=== PATIENT | female | born 1935 | race Caucasian/White ===

== ENCOUNTER → 2017-04-02 | Outpatient (CLI) | payer MEDICARE | END | disposition home or self-care (01) | LOC: CARD 13:51 | PROVIDERS: ATTEND Internal Medicine | DX: R05 Cough (principal) | CPT/HCPCS: 94060; 94620; 94726; 94729 ==

== ENCOUNTER 2017-06-11 06:58 | Inpatient (IN) | payer MEDICARE ==
[~2017-06-11] VITALS: Ht 152.4 cm; Wt 100.4 kg
[~2017-06-11 06:58] MED LIST: ASPI-496 PO; BACITRACIN 50,000 UNIT ONE; CALC-451 PO; CARB15DR EACHEYE; DEXAMETHASONE 4 MG/ML, 1ML ONE; EPINEPHRINE 1 MG/ML, 1ML ONE; FELO2.5T PO; FENTANYL PF 100 MCG/2ML ONE; HYDR-3237 PO; HYDR25TA6 PO; KETOROLAC 60 MG/2 ML ONE; LOSA50TA6 PO; MIDAZOLAM 1 MG/ML, 2ML ONE; OMEP40CA6 PO; ONDANSETRON 2MG/ML, 2ML ONE; POTA10TA5 PO; PROPOFOL 10 MG/ML, 20ML ONE; ROCURONIUM 10 MG/ML ONE; ROPIvacaine/PF 0.2%, 20 ML ONE; SIMV20TA3 PO; SUCCINYLCHOLINE 20 MG/ML, 10ML ONE; TRAM50TA2 PO; TRANEXAMIC ACID 100 MG/ML, 10ML ONE; VIT1TABL34 PO; [UNRECOGNIZED DRUG - SUPPLY] EACHEYE; morphine SULFATE/PF 1 MG/ML, 10ML ONE
[2017-06-11] MEDS ORDERED: CEFAZOLIN 1,000 MG ONE ×2 (07:00)
[2017-06-11] MEDS ORDERED: LACTATED RINGERS 1,000 ML IV SCH (07:20)
[2017-06-11] MEDS ORDERED: VANCOMYCIN PMX 1GM/200ML 200 ML IV ONE (07:30)
[2017-06-11 07:51] VITALS: BP 154/77
[2017-06-11] MEDS ORDERED: BUPIVACAINE/PF 0.25% ONE (08:28)
[2017-06-11] MEDS ORDERED: morphine SULFATE 10 MG/ML, 1ML IVPush PRN (10:00)
[2017-06-11] MEDS ORDERED: HYDROmorphone 1 MG/ML, 1ML IV PRN (10:00)
[2017-06-11] MEDS ORDERED: DIPHENHYDRAMINE 50 MG CAPSULE PO PRN (10:00)
[2017-06-11] MEDS ORDERED: hydrALAzine 20 MG/ML, 1ML IV PRN (10:00)
[2017-06-11] MEDS ORDERED: LABETALOL 5MG/ML, 20ML IV PRN (10:00)
[2017-06-11] MEDS ORDERED: OXYcodone 5 MG/5 ML ORAL.SOL UDC PO PRN (10:00)
[2017-06-11] MEDS ORDERED: OXYcodone/APAP 7.5/325MG TABLET PO PRN (10:00)
[2017-06-11] MEDS ORDERED: TRANEXAMIC ACID 100 MG/ML, 10ML IVPB ONE (10:00)
[2017-06-11] MEDS ORDERED: ONDANSETRON 2MG/ML, 2ML IVPush PRN ×2 (10:00)
[2017-06-11] MEDS ORDERED: ACETAMINOPHEN 325 MG TABLET PO PRN (10:00)
[2017-06-11] MEDS ORDERED: HYDROcodone/APAP 7.5-325MG/15ML UDC PO PRN (10:00)
[2017-06-11] MEDS ORDERED: ZOLPIDEM 5MG TABLET PO PRN (10:00)
[2017-06-11] MEDS ORDERED: LORazepam 2 MG/ML, 1ML IVPush PRN (10:00)
[2017-06-11] MEDS ORDERED: VANCOMYCIN PMX 1GM/200ML 200 ML IVPB ONE (10:00)
[2017-06-11] MEDS ORDERED: LABETALOL 5MG/ML, 20ML ONE (10:17)
[2017-06-11] MEDS ORDERED: HYDROmorphone 1 MG/ML, 1ML ONE (10:28)
[2017-06-11] MEDS ORDERED: FENTANYL PF 100 MCG/2ML ONE (11:53)
[2017-06-11] MEDS ORDERED: OXYcodone 5 MG/5 ML ORAL.SOL UDC ONE (11:54)
[2017-06-11] MEDS: FENTANYL PF 100 MCG/2ML IV PRN ×3 (11:59→12:25)
[2017-06-11 12:55] VITALS: BP 138/74
[2017-06-11] MEDS: D5%-0.45% NACL 1,000 ML IV SCH ×2 (13:40→14:36)
[2017-06-11] MEDS ORDERED: TRANEXAMIC ACID 1,000 MG in SODIUM CHLORIDE 0.9% 100 ML IV ONE (14:00)
[2017-06-11] MEDS: CEFAZOLIN PMX 1GM/50ML 50 ML IVPB SCH ×2 (14:35→22:20)
[2017-06-11] MEDS: HYDROcodone/APAP 5/325 TABLET PO PRN (18:24)
[2017-06-11 18:43] VITALS: BP 118/72
[2017-06-11] MEDS: ARTIFICIAL TEARS OPHTH SOLN 15ML OP SCH (21:00)
[2017-06-11] MEDS ORDERED: SIMVASTATIN 20 MG TABLET PO SCH (21:00)
[2017-06-11] MEDS: CALCIUM/VITAMIN D3 250-125 TABLET PO SCH (22:21)
[2017-06-11 23:44] VITALS: BP 97/60
[2017-06-12] MEDS: D5%-0.45% NACL 1,000 ML IV SCH ×2 (00:50→05:42)
[2017-06-12 03:07] VITALS: BP 110/52
[2017-06-12] MEDS: HYDROcodone/APAP 5/325 TABLET PO PRN ×2 (05:09→08:58)
[2017-06-12] MEDS: CEFAZOLIN PMX 1GM/50ML 50 ML IVPB SCH (05:54)
[2017-06-12] MEDS ORDERED: OMEPRAZOLE 20 MG CAPSULE.DR PO SCH (07:30)
[2017-06-12] MEDS ORDERED: ASPIRIN 325 MG TABLET EC PO SCH ×2 (08:00→17:00)
[2017-06-12 08:25] VITALS: BP 156/73
[2017-06-12] MEDS ORDERED: VANCOMYCIN PMX 1GM/200ML 200 ML IVPB ONE (08:30)
[2017-06-12] MEDS: CALCIUM/VITAMIN D3 250-125 TABLET PO SCH (08:36)
[2017-06-12] MEDS: ARTIFICIAL TEARS OPHTH SOLN 15ML OP SCH (08:37)
[2017-06-12] MEDS ORDERED: MULTIVITAMINS/MINERALS TABLET PO SCH (09:00)
[2017-06-12] MEDS ORDERED: AMLODIPINE 2.5 MG TABLET PO SCH (09:00)
[2017-06-12] MEDS ORDERED: LOSARTAN 50MG TABLET PO SCH (09:00)
[2017-06-12] MEDS ORDERED: POTASSIUM CHLORIDE 10 MEQ TABLET.ER PO SCH (09:00)
[2017-06-12] MEDS ORDERED: HYDROCHLOROTHIAZIDE 12.5 MG CAPSULE PO SCH (09:00)
[2017-06-12] MEDS ORDERED: HYDR-882 PO (12:54)
[2017-06-12 13:34] VITALS: BP 132/70
[2017-06-12 13:55] VITALS: BP 132/70
[2017-06-12] MEDS ORDERED: DOCUSATE 100 MG CAPSULE PO SCH (21:00)
== END 2017-06-12 14:20 | disposition home or self-care (01) | DRG 470 ==
LOC: ORIP 06:58 → 4NOR 12:54
PROVIDERS: ADMIT Orthopaedic Surgery; ATTEND Orthopaedic Surgery
PROC: 0SRD0J9 Replacement of Left Knee Joint with Synthetic Substitute, Cemented, Open Approach (ICD-10-PCS; principal; 2017-06-11 09:30)
DX: M17.12 Unilateral primary osteoarthritis, left knee (principal)
CPT/HCPCS: 36415; 82962; 85018; C1713; J0171; J0690; J1100; J1170; J1885; J2250; J2274; J2405; J2704; J2795; J3010; J3370; J3490; C1776; J0330; J2270; J7120

== ENCOUNTER → 2018-02-07 | Outpatient (CLI) | payer MEDICARE ==
[~2018-02-07] MED LIST changes: -BACITRACIN 50,000 UNIT ONE; -CARB15DR EACHEYE; +CARB15DR3 EACHEYE; -DEXAMETHASONE 4 MG/ML, 1ML ONE; -EPINEPHRINE 1 MG/ML, 1ML ONE; -FENTANYL PF 100 MCG/2ML ONE; +HYDR-882 PO; -KETOROLAC 60 MG/2 ML ONE; -MIDAZOLAM 1 MG/ML, 2ML ONE; -ONDANSETRON 2MG/ML, 2ML ONE; -PROPOFOL 10 MG/ML, 20ML ONE; -ROCURONIUM 10 MG/ML ONE; -ROPIvacaine/PF 0.2%, 20 ML ONE; -SUCCINYLCHOLINE 20 MG/ML, 10ML ONE; -TRANEXAMIC ACID 100 MG/ML, 10ML ONE; -morphine SULFATE/PF 1 MG/ML, 10ML ONE
== END | disposition home or self-care (01) ==
LOC: RAD 10:00
PROVIDERS: ATTEND Internal Medicine
DX: E04.1 Nontoxic single thyroid nodule (principal)
CPT/HCPCS: 71250

== ENCOUNTER 2020-09-04 10:06 | Emergency (ER) | payer MEDICARE ==
[~2020-09-04] VITALS: Ht 149.9 cm; Wt 91.9 kg
[~2020-09-04 10:06] MED LIST changes: +DOCU-131 PO; -FELO2.5T PO; +FELO2.5T4 PO; +HYDR-3653 PO; -HYDR-882 PO; +LOSA50TA14 PO; -LOSA50TA6 PO; +OMEP40CA42 PO; -OMEP40CA6 PO; +OXYC5CAP2 PO; +SIMV20TA19 PO; -SIMV20TA3 PO
[2020-09-04] MEDS ORDERED: SODIUM CHLORIDE FLUSH 10ML SYR IVF ONE (11:00)
[2020-09-04] MEDS ORDERED: ONDANSETRON 2MG/ML, 2ML IVPush ONE (11:00)
[2020-09-04] MEDS ORDERED: MORPHINE SULFATE 4 MG/ML, 1ML IVPush PRN (11:00)
[2020-09-04] MEDS ORDERED: ONDANSETRON 2MG/ML, 2ML ONE (11:12)
[2020-09-04] MEDS ORDERED: MORPHINE SULFATE 4 MG/ML, 1ML ONE (11:13)
[2020-09-04 11:15] LABS: BASOPHILS % (AUTO) 1 % (0-1); EOSINOPHILS % (AUTO) 2 % (1-7); LYMPHOCYTES % (AUTO) 19 % (22-44); MEAN CORPUSCULAR HEMOGLOBIN 27.7 pg (27.0-34.8); MEAN CORPUSCULAR HGB CONC 32.3 g/dL (32.4-35.8); MEAN PLATELET VOLUME 9.1 fL (7.4-10.4); MONOCYTES % (AUTO) 7 % (2-9); NEUTROPHILS % (AUTO) 72 % (42-75); PLATELET COUNT 200 x10^3/uL (130-400); RED BLOOD COUNT 5.27 x10^6/uL (3.82-5.3); RED CELL DISTRIBUTION WIDTH 15.5 % (9.6-15.2)
[2020-09-04 11:22] LABS: MD NO
[2020-09-04 11:28] LABS: ALANINE AMINOTRANSFERASE 18 U/L (12-78); ALBUMIN 3.6 g/dL (3.4-5.0); ANION GAP 6 mmol/L (5-15); CALCIUM 9.4 mg/dL (8.5-10.1); CHLORIDE 110 mmol/L (98-107); CREATININE 1.49 mg/dL (0.55-1.02)
[2020-09-04 11:30] LABS: ALKALINE PHOSPHATASE 102 U/L (45-117); BILIRUBIN,TOTAL 0.9 mg/dL (0.2-1.0)
--- NOTE | 2020-09-04 11:38 | NUR ---
THIS IS A 85 YR OLD FEMALE WITH CC OF BILATERAL UPPER QUADRANT ABD PAIN. PAIN IS DESCRIBED SHARP AND STABBING. PT STATES RECENT KIDNEY SURGERY AND REMOVAL FOR CANCER. SELF REPORTS FEVER OF 100 AT HOME
--- NOTE | 2020-09-04 11:58 | NUR ---
PT TO CT NOW
[2020-09-04] MEDS ORDERED: OMNIPAQUE 350 MG/ML, 100ML BOTTLE ONE (12:10)
[2020-09-04 13:43] LABS: MICROSCOPIC AUTO
[2020-09-04 14:08] VITALS: BP 137/68
--- NOTE | 2020-09-04 14:08 | NUR ---
TASK RN: PT RESTING IN [facility]. UP FOR RECHECK. VSS. NAD
== END 2020-09-04 14:27 | disposition home or self-care (01) ==
LOC: ED 10:47
DX: R10.84 Generalized abdominal pain (principal); R11.0 Nausea; E11.9 Type 2 diabetes mellitus without complications
CPT/HCPCS: 36415; 74177; 80053; 81001; 83690; 85025; 96374; 96375; 99285; J2270; J2405; Q9967

== ENCOUNTER → 2021-02-09 | Outpatient (CLI) | payer MEDICARE ==
[~2021-02-09] MED LIST changes: +CEFD300C37 PO; +GADOTERATE 10 MMOL/20ML SYR ONE; -OMEP40CA42 PO; +OMEP40CA8 PO; +OMNIPAQUE 350 MG/ML, 100ML BOTTLE ONE
[2021-02-09 16:29] LABS: CREATININE 1.29 mg/dL (0.55-1.02)
== END | disposition home or self-care (01) ==
LOC: RAD 15:31
PROVIDERS: ATTEND Specialist
DX: C64.1 Malignant neoplasm of right kidney, except renal pelvis (principal); G31.9 Degenerative disease of nervous system, unspecified; J90 Pleural effusion, not elsewhere classified; E04.9 Nontoxic goiter, unspecified; D25.9 Leiomyoma of uterus, unspecified
CPT/HCPCS: 36415; 70553; 71260; 74177; 82565; A9575; Q9967